=== PATIENT | male | born 1955 | race Caucasian/White ===

== ENCOUNTER 2021-05-17 04:47 | Emergency (ER) | payer OTHER ==
[2021-05-17] MEDS ORDERED: KETOROLAC TROME10 MG PO (05:40)
== END 2021-05-17 05:51 | disposition home or self-care (01) ==
LOC: FER 04:47
DX: R68.84 Jaw pain (principal); I10 Essential (primary) hypertension; F17.200 Nicotine dependence, unspecified, uncomplicated; Z79.01 Long term (current) use of anticoagulants; Z86.718 Personal history of other venous thrombosis and embolism
CPT/HCPCS: 87880; 99283; J1885